=== PATIENT | female | born 1985 | race African-American/Black ===

== ENCOUNTER 2019-07-29 10:24 | Emergency (ER) | payer OTHER, SELFPAY ==
--- NOTE | ~2019-07-29 | XR_ITS ---
EXAMINATION: XR chest 2V 07/29/2019 11:15 INDICATION: Cough for one month PROCEDURE: 2 view chest COMPARISON: No prior studies for comparison. FINDINGS: The lungs are clear. The cardiomediastinal silhouette is within normal limits. There are no pleural effusions. There is no pneumothorax suspected. IMPRESSION: 1: NO ACUTE CARDIOPULMONARY DISEASE. Reviewed, dictated and finalized at location A.
[2019-07-29 10:36] VITALS: BP 125/83; PULSE 110; RESP 18; TEMP 38; O2SAT 99
--- NOTE | 2019-07-29 11:05 | ED.URI ---
HPI - URI/Sore Throat General Chief Complaint: Upper Respiratory Infection Stated Complaint: Cough,Sore Throat Time Seen by Provider: 07/29/19 10:50 Source: patient and RN notes reviewed Mode of arrival: ambulatory Limitations: no limitations History of Present Illness HPI Narrative: Patient presents today complaining of dry cough x1 month, intermittent shortness of breath. To the left frontal headache and sore throat that developed yesterday. Denies fever, congestion, rhinorrhea. No history of asthma or COPD. She does not smoke or vape. She currently rates her headache and sore throat 12/29 and has tried DayQuil and NyQuil at home without relief. MD elicited complaint: cough and sore throat Related Data Allergies Allergy/AdvReac Type Severity Reaction Status Date / Time No Known Allergies Allergy Unknown Unverified 02/26/19 08:47 No Known Allergies Allergy Uncoded 02/26/19 08:47 Review of Systems Review of Systems: Narrative: CONSTITUTIONAL: Denies body aches, fever, chills, or sweats. EYES: Denies visual changes, redness, or discharge. ENT: Denies rhinorrhea, congestion, or otalgia.+ Throat CARDIOVASCULAR: Denies chest pain, palpitations, or edema. RESPIRATORY: + Cough, occasional shortness of breath GASTROINTESTINAL: Denies abdominal pain, nausea, vomiting, or diarrhea. GENITOURINARY: Denies dysuria or hematuria. SKIN: Denies rash, itching, or wounds. MUSCULOSKELETAL: Denies back pain, joint pain, or myalgia. NEUROLOGIC: Denies numbness, tingling, or weakness.+ Headache PSYCH: Denies depression or anxiety. PMFSH Social History Social History Gender identity (if verbalized by the patient): Female Comments At time of signature, I have reviewed and agree with nursing past medical, surgical, social and family history unless otherwise noted. Please see nursing chart for further information. There is no relevant family history pertinent to the presenting complaint Exam Narrative: Exam Narrative: GENERAL: Mildly ill-appearing, well-nourished, and in no acute distress. HEAD: Normocephalic, atraumatic. EYES: EOMI. No redness or drainage. Conjunctivae normal. ENT: Mucous membranes pink and moist. Nares clear. No rhinorrhea. TMs normal bilaterally. Throat normal. Uvula midline. NECK: Normal AROM. Supple. No lymphadenopathy. CHEST: No respiratory distress. Slight crackle in left lower lobe, otherwise clear. HEART: Regular rate and rhythm. No murmur appreciated. Normal peripheral pulses. MUSCULOSKELETAL: No bony tenderness. EXTREMITIES: Normal range of motion. No edema. SKIN: Warm, dry, no rash. NEURO: No focal deficits. Alert and oriented x3. Gait steady. PSYCH: Normal affect. No signs of depression or anxiety. Course Vital Signs Vital signs: Vital Signs Temperature 100.4 F H 07/29/19 10:36 Pulse Rate 110 H 07/29/19 10:36 Respiratory Rate 18 07/29/19 10:36 Blood Pressure 125/83 07/29/19 10:36 Pulse Oximetry 99 07/29/19 10:36 Temperature 100.4 F H 07/29/19 10:36 Pulse Rate 110 H 07/29/19 10:36 Respiratory Rate 18 07/29/19 10:36 Blood Pressure 125/83 07/29/19 10:36 Pulse Oximetry 99 07/29/19 10:36 Reviewed. Pt has been instructed to follow up with her PCP regarding her elevated blood pressure today. MDM - URI/Sore Throat Differential Diagnosis Differential diagnosis: Likely upper respiratory infection, otitis media, sinusitis, viral infection, bronchitis, pharyngitis and other (Strep throat, pneumonia) Lab Data Attestation: I reviewed the patient's lab results. Labs: Strep Screen Presumptive Negative *(Reference Range: Negative)* Imaging Data Radiologist's impression: ITS Impressions Chest X-Ray 07/29/19 11:28 IMPRESSION: 1: NO ACUTE CARDIOPULMONARY DISEASE. Critical Care Time Critical Care Time Critical Care Time: No Discharge Plan Discharge Clinical Impression: Bronchitis, Viral infection Patient
== END 2019-07-29 11:41 | disposition home or self-care (01) ==
PROVIDERS: Emergency Provider Nurse Practitioner
DX: J40 Bronchitis, not specified as acute or chronic (principal); B34.9 Viral infection, unspecified
CPT/HCPCS: 71046; 87081; 87880; 99213; G0463

== ENCOUNTER 2019-11-19 15:29 | Outpatient (CLI) | payer OTHER, SELFPAY ==
--- NOTE | ~2019-11-19 | US_ITS ---
EXAMINATION: US OB <=14 wk fetus w TV DATE: 11/19/2019 16:11 INDICATION: First trimester dating TECHNIQUE: Real-time pelvic transabdominal and transvaginal ultrasound was performed. COMPARISON: None. FINDINGS: The uterus measures 6.0 x 4.5 x 3.9 cm. There is an intrauterine gestational sac. A yolk s ac is identified. heart motion is identified measuring 124 beats per minute (bpm) by M-mode Dop pler. The crown rump length measures 4 mm , which correlates with an estimated gestational age of 6 weeks and 0 day(s) (+/-) 4 day(s). The right ovary measures 3.3 x 2.8 x 2.4 cm. The left ovary measures 1.4 x 1.2 x 1.3 cm. There is nor mal vascular flow in the ovaries. There is no free fluid in the pelvis. IMPRESSION: 1. Live intrauterine with an estimated gestational age of 6 weeks and 0 day(s) (+/-) 4 day( s) and an estimated delivery date of 07/14/2020. Reviewed, dictated and finalized at location A. IMPRESSION: 1. Live intrauterine with an estimated gestational age of 6 weeks and 0 day(s) (+/-) 4 day(s) and an estimated delivery date of 07/14/2020.
== END 2019-11-19 15:30 | disposition home or self-care (01) ==
PROVIDERS: PCP Nurse Practitioner Family; Visit Provider Nurse Practitioner Family
DX: Z32.01 Encounter for pregnancy test, result positive (principal); Z3A.01 Less than 8 weeks gestation of pregnancy
CPT/HCPCS: 76801; 76817